=== PATIENT | male | born 1955 | race African-American/Black ===

== ENCOUNTER 2022-05-08 12:16 | Emergency (ER) | payer MEDICARE, MEDICAID ==
[~2022-05-08] VITALS: Ht 180.3 cm; Wt 111.6 kg
[~2022-05-08 12:16] MED LIST: ACET-10509 PO; ASPI-1822 PO; BENZ-315 PO; CHOLESTEROL MEDS PO; ESOM40EC PO; NAPR-54 PO; OLAN5TAB29 PO
[2022-05-08 12:24] VITALS: BP 137/87
--- NOTE | 2022-05-08 12:35 | NUR ---
66 Y/O MALE BIB SELF C/O REDNESS IN CONJUNCTIVA X1 DAY, DENIES HEAD INJURY, BLURRY VISION. NKA PMH: DENIES
[2022-05-08] MEDS ORDERED: FLUORESCEIN OPTH STRIP 1 MG OP ONE (12:50)
[2022-05-08] MEDS ORDERED: TETRACAINE HCL/PF 0.5% OPTH 4 ML BTL OP ONE (12:50)
--- NOTE | 2022-05-08 13:43 | NUR ---
Patient discharged with v/s stable. Written and verbal after care instructions ABOUT SUBCONJUNCTIVAL HEMORRHAGE given and explained. Patient verbalized understanding. Ambulatory with steady gait. All questions addressed prior to discharge. Advised to follow up with PMD.
== END 2022-05-08 13:43 | disposition home or self-care (01) ==
LOC: MED 12:16
DX: H11.32 Conjunctival hemorrhage, left eye (principal); I10 Essential (primary) hypertension; E78.5 Hyperlipidemia, unspecified; Z79.899 Other long term (current) drug therapy; Z79.82 Long term (current) use of aspirin
CPT/HCPCS: 99283

== ENCOUNTER 2022-06-16 16:24 | Emergency (ER) | payer MEDICARE, MEDICAID ==
[~2022-06-16] VITALS: Ht 177.8 cm; Wt 83.9 kg
[2022-06-16 16:31] VITALS: BP 136/81
[2022-06-16] MEDS: KETOROLAC 60 MG/2 ML VIAL IM ONE (17:24)
[2022-06-16] MEDS ORDERED: IBUP-2213 PO (17:32)
[2022-06-16 17:53] VITALS: BP 136/81
== END 2022-06-16 17:54 | disposition home or self-care (01) ==
LOC: MED 16:24
DX: H92.02 Otalgia, left ear (principal); R51.9 Headache, unspecified; K21.9 Gastro-esophageal reflux disease without esophagitis; I10 Essential (primary) hypertension; Z79.899 Other long term (current) drug therapy; Z79.82 Long term (current) use of aspirin
CPT/HCPCS: 96372; 99283; J1885

== ENCOUNTER 2022-07-11 18:41 | Emergency (ER) | payer MEDICARE, MEDICAID ==
[~2022-07-11] VITALS: Ht 175.3 cm; Wt 112.0 kg
[~2022-07-11 18:41] MED LIST changes: +IBUP-2213 PO
[2022-07-11 18:48] VITALS: BP 159/90
--- NOTE | 2022-07-11 18:54 | NUR ---
EKG AT TRIAGE ROOM.
--- NOTE | 2022-07-11 19:50 | NUR ---
Patient taken to X-ray via WC.
[2022-07-11 19:57] LABS: BASOPHILS # (AUTO) 0.1 K/uL (0.00-0.22); BASOPHILS % (AUTO) 1.5 % (0.0-2.0); EOSINOPHILS # (AUTO) 0.3 K/uL (0-0.4); EOSINOPHILS % (AUTO) 4.2 % (0.0-4.0); HEMATOCRIT 40.7 % (36-52); HEMOGLOBIN 13.3 g/dL (12.0-18.0); LYMPHOCYTES # (AUTO) 3.1 K/uL (2.0-11.5); LYMPHOCYTES % (AUTO) 47.5 % (20.5-51.1); MEAN CORPUSCULAR HEMOGLOBIN 28 pg (27-31); MEAN CORPUSCULAR HGB CONC 33 g/dL (33-37); MEAN CORPUSCULAR VOLUME 84.9 fL (80-94); MONOCYTES # (AUTO) 0.5 K/uL (0.8-1.0); MONOCYTES % (AUTO) 8.1 % (1.7-9.3); NEUTROPHILS # (AUTO) 2.5 K/uL (1.8-7.7); NEUTROPHILS % (AUTO) 38.7 % (42.2-75.2); PLATELET COUNT (AUTO) 232 K/uL (140-450); WHITE BLOOD COUNT (AUTO) 6.6 K/uL (4.8-10.8)
[2022-07-11 20:11] LABS: ALBUMIN 4.1 g/dL (3.4-5.0); ANION GAP 11.5 (8-16); CARBON DIOXIDE 27.8 mmol/L (21-32); POTASSIUM 4.3 mmol/L (3.5-5.1); TOTAL BILIRUBIN 0.3 mg/dL (0.0-1.0)
--- NOTE | 2022-07-11 20:41 | NUR ---
PER ADMITTING PT LEFT. ETHAN SOLIZ MADE AWARE
== END 2022-07-11 20:41 | disposition left against medical advice (07) ==
LOC: MED 18:41
DX: R07.9 Chest pain, unspecified (principal); R11.0 Nausea
CPT/HCPCS: 36415; 71045; 80053; 83880; 84484; 85025; 93005; 99281; 99285

== ENCOUNTER 2022-08-19 03:20 | Emergency (ER) | payer MEDICARE, MEDICAID ==
[~2022-08-19] VITALS: Ht 177.8 cm; Wt 81.6 kg
--- NOTE | 2022-08-19 03:25 | NUR ---
Dr. Yung examining patient.
[2022-08-19 03:27] VITALS: BP 151/87
--- NOTE | 2022-08-19 03:29 | NUR ---
PT MEGHAN DAY. TAKEN TO ER CHAIR
--- NOTE | 2022-08-19 04:58 | NUR ---
CALLED [facility], MADE AWARE THAT PT WILL BE ARRIVING IN [place], STATES THEY WILL BE WAITING FOR PT IN LOBBY.
[2022-08-19 05:04] VITALS: BP 151/87
--- NOTE | 2022-08-19 05:04 | NUR ---
Patient discharged with v/s stable. Written and verbal after care instructions given and explained. Patient verbalized understanding. Ambulatory with to car. All questions addressed prior to discharge. Advised to follow up with PMD.
== END 2022-08-19 05:04 | disposition home or self-care (01) ==
LOC: MED 03:20
DX: R53.1 Weakness (principal); I10 Essential (primary) hypertension; K21.9 Gastro-esophageal reflux disease without esophagitis; Z79.899 Other long term (current) drug therapy; Z79.82 Long term (current) use of aspirin
CPT/HCPCS: 93005; 99283

== ENCOUNTER 2023-02-07 16:37 | Emergency (ER) | payer MEDICARE, MEDICAID ==
[~2023-02-07] VITALS: Ht 180.3 cm; Wt 106.6 kg
[2023-02-07 17:32] VITALS: BP 138/78; PULSE 55; RESP 18; TEMP 97.7; O2SAT 97
[2023-02-07] MEDS ORDERED: NAPR-54 PO (18:22)
== END 2023-02-07 18:30 | disposition home or self-care (01) ==
LOC: MED 16:37
DX: R51.9 Headache, unspecified (principal); K21.9 Gastro-esophageal reflux disease without esophagitis; I10 Essential (primary) hypertension; Z79.899 Other long term (current) drug therapy
CPT/HCPCS: 99282

== ENCOUNTER 2023-05-02 16:06 | Emergency (ER) | payer MEDICARE, OTHER ==
[~2023-05-02] VITALS: Ht 180.3 cm; Wt 106.7 kg
[2023-05-02 16:12] VITALS: BP 142/76; PULSE 55; RESP 20; TEMP 97.7; O2SAT 95
[2023-05-02] MEDS ORDERED: ICOS1SGL PO (16:52)
== END 2023-05-02 17:01 | disposition home or self-care (01) ==
LOC: MED 16:06
DX: E78.5 Hyperlipidemia, unspecified (principal); Z76.0 Encounter for issue of repeat prescription; K21.9 Gastro-esophageal reflux disease without esophagitis; I10 Essential (primary) hypertension; Z79.899 Other long term (current) drug therapy; Z79.1 Long term (current) use of non-steroidal anti-inflammatories (NSAID); Z79.82 Long term (current) use of aspirin
CPT/HCPCS: 99281

== ENCOUNTER 2023-05-22 15:13 | Emergency (ER) | payer MEDICARE, OTHER, MEDICAID ==
[~2023-05-22] VITALS: Ht 182.9 cm; Wt 105.3 kg
[~2023-05-22 15:13] MED LIST changes: +ICOS1SGL PO
[2023-05-22 15:20] VITALS: BP 139/74; PULSE 51; RESP 19; TEMP 98.3; O2SAT 98
[2023-05-22] MEDS ORDERED: DOCU1TAB73 PO (16:36)
[2023-05-22] MEDS ORDERED: MIRABULK PO (16:36)
== END 2023-05-22 16:46 | disposition home or self-care (01) ==
LOC: MED 15:13
DX: K59.00 Constipation, unspecified (principal); K21.9 Gastro-esophageal reflux disease without esophagitis; I10 Essential (primary) hypertension; Z79.899 Other long term (current) drug therapy
CPT/HCPCS: 74018; 99283

== ENCOUNTER 2023-06-27 13:48 | Emergency (ER) | payer MEDICARE, OTHER ==
[~2023-06-27] VITALS: Ht 180.3 cm; Wt 106.6 kg
[~2023-06-27 13:48] MED LIST changes: +DOCU1TAB73 PO; +MIRABULK PO
[2023-06-27 13:58] VITALS: BP 156/80; PULSE 101; RESP 18; TEMP 97.6; O2SAT 99
[2023-06-27] MEDS ORDERED: BACI-352 TP (14:51)
== END 2023-06-27 15:21 | disposition home or self-care (01) ==
LOC: MED 13:48
DX: N48.89 Other specified disorders of penis (principal); K21.9 Gastro-esophageal reflux disease without esophagitis; I10 Essential (primary) hypertension; Z79.899 Other long term (current) drug therapy
CPT/HCPCS: 81002; 99282